=== PATIENT | female | born 1995 | race Caucasian/White ===

== ENCOUNTER 2020-02-08 08:44 | Outpatient (CLI) | payer OTHER ==
[2020-02-09 12:17] LABS: SARS-CoV-2 MS2 Positive; SARS-CoV-2 N Gene Negative; SARS-CoV-2 S Gene Negative; SARS-CoV-2 by NAA Not Detected (NotDetected); SARS-CoV-2 orf1ab Negative
== END 2020-02-08 08:45 | disposition home or self-care (01) ==
LOC: LABSCS 08:44
PROVIDERS: ATTEND Student in an Organized Health Care Education/Training Program
DX: Z20.828 Contact with and (suspected) exposure to other viral communicable diseases (principal)
CPT/HCPCS: 87635; U0003

== ENCOUNTER 2020-02-11 04:07 | Inpatient (IN) | payer OTHER ==
[2020-02-11] MEDS ORDERED: Carboprost 250 MCG/ML AMP IM PRN (04:21)
[2020-02-11] MEDS ORDERED: Misoprostol 200 MCG TAB PR PRN (04:21)
[2020-02-11] MEDS ORDERED: Ondansetron PF 4 MG/2 ML Vial IVP PRN ×2 (04:21→05:36)
[2020-02-11] MEDS ORDERED: HYDROcodone/Acetaminophen 5/325 mg Tablet PO PRN (04:21)
[2020-02-11] MEDS ORDERED: Ibuprofen 800 MG TAB PO PRN (04:21)
[2020-02-11] MEDS ORDERED: Methylergonovine 0.2 MG/ML VIAL IM PRN (04:21)
[2020-02-11] MEDS ORDERED: Butorphanol Tartrate 1 MG/ML VIAL SLOW IVP PRN (04:21)
[2020-02-11] MEDS ORDERED: Acetaminophen 500 MG TAB PO PRN (04:21)
[2020-02-11] MEDS ORDERED: Lidocaine 1% (PF) 30 ML VIAL SC PRN (04:21)
[2020-02-11] MEDS ORDERED: NS / Oxytocin 40 units/1000ml 1,000 ML IV PRN (04:21)
[2020-02-11] MEDS ORDERED: hydrALAZINE 20 MG/ML VIAL SLOW IVP PRN ×3 (04:21→10:05)
[2020-02-11] MEDS ORDERED: Diphenoxylate HCl/Atropine Tablet PO PRN (04:21)
[2020-02-11] MEDS ORDERED: Promethazine HCl 25 MG/ML VIAL IM PRN ×2 (04:21→05:36)
[2020-02-11] MEDS ORDERED: Lactated Ringer's 1,000 ML IV SCH (04:30)
[2020-02-11] MEDS ORDERED: NS w/ Oxytocin 10 units 500 ML IV SCH (04:30)
[2020-02-11 04:37] VITALS: BMI 29.2
[2020-02-11] MEDS ORDERED: Penicillin G Potassium 5 MILL.UNITS in Sodium Chloride 0.9% 100 ML IVPB SCH (04:45)
[2020-02-11] MEDS ORDERED: Fentanyl 4 mcg/Bup 0.1% Cadd 100 ML ONE (05:01)
[2020-02-11 05:10] LABS: Hemoglobin 12.6 g/dL (12.0-16.0); Mean Corpuscular Volume 87.9 fL (78.0-98.0); Mean Platelet Volume 10.5 fL (7.4-10.4); Platelet Count 207 thou/uL (130-400); RBC Distribution Width 11.5 % (11.5-14.5); Red Blood Cell (RBC) Count 4.36 mill/uL (4.20-5.40); White Blood Cell (WBC) Count 13.6 thou/uL (4.8-10.8)
[2020-02-11] MEDS ORDERED: EPHEDRINE 25 MG/5 ML SYRINGE SLOW IVP PRN (05:36)
[2020-02-11] MEDS ORDERED: diphenhydrAMINE 50 MG/ML VIAL IVP PRN (05:36)
[2020-02-11] MEDS ORDERED: Naloxone HCl 0.4 mg/ml Vial IVP PRN ×2 (05:36)
[2020-02-11] MEDS ORDERED: Lactated Ringer's 500 ML IV PRN (05:36)
[2020-02-11] MEDS ORDERED: Acetaminophen 325 MG TAB PO PRN (05:36)
[2020-02-11] MEDS ORDERED: Fentanyl 4 mcg/Bupivacaine 0.1% Cassette 100 ML EPIDURAL SCH (05:45)
[2020-02-11] MEDS ORDERED: Communication Order-Pharmacy FS SCH (05:45)
[2020-02-11 05:52] LABS: HBSAg Index 0.19 S/CO (0-0.99); Hep B Surf Ag Non-Reactive S/CO (NonReactive)
[2020-02-11 05:53] LABS: Syphilis Antibody Nonreactive (Nonreactive); Syphilis Antibody Index 0.03 S/CO (<1.00 Non-Reactive)
--- NOTE | 2020-02-11 07:00 | DN ---
DATE OF PROCEDURE: 02/11/2020 DATE OF DELIVERY: 02/11/2020 Patient is a 24-year-old G2, P1, with an intrauterine at 40 weeks and a day, presenting in active labor. She delivered a female at 0557 hours by uncomplicated term spontaneous vaginal delivery. Gestational age is 40 weeks. Apgars are eight and nine. weight unavailable at the time of dictation. Placenta delivered spontaneously followed by Pitocin infusion. There were no lacerations. Dr. Spence is the delivering physician. Estimated blood loss was about 200. Quantitative blood loss unavailable at the time of dictation. Counts Were correct. There were no lacerations. Mother and baby are stable in the room in the immediate . Job ID: [id number]
[2020-02-11] MEDS ORDERED: Milk Of Magnesia 30 ML UDCUP PO PRN ×2 (08:53→10:05)
[2020-02-11] MEDS ORDERED: Adacel (T-DAP) 0.5 ML SYRINGE IM ONE (08:53)
[2020-02-11] MEDS ORDERED: Bisacodyl 10 MG SUPP PR PRN ×2 (08:53→10:05)
[2020-02-11] MEDS ORDERED: Preparation H Ointment 28 GM TUBE PR PRN (08:53)
[2020-02-11] MEDS ORDERED: Acetaminophen/Codeine 30-300mg Tablet PO PRN ×2 (08:53)
[2020-02-11] MEDS ORDERED: Docusate Calcium (SURFAK) 240 MG CAP PO SCH (09:00)
[2020-02-11] MEDS ORDERED: Prenatal Vitamin 1 TAB PO SCH (09:00)
[2020-02-11] MEDS ORDERED: Penicillin G 2.5 MILL.units 2.5 MILL.UNITS in Premix Bag 1 BAG IVPB SCH (09:00)
[2020-02-11] MEDS ORDERED: NS / Oxytocin 40 units/1000ml 1,000 ML IV SCH ×2 (09:00→10:05)
[2020-02-11] MEDS ORDERED: diphenhydrAMINE 25 MG CAP PO PRN (10:05)
[2020-02-11] MEDS ORDERED: Lanolin Ointment 7 GM TUBE TOP PRN (10:05)
[2020-02-11] MEDS: Ibuprofen 800 MG TAB PO SCH ×2 (10:22→18:30)
[2020-02-11] MEDS ORDERED: Bupivacaine HCl 0.5%/Epinephrine 1:200,000/PF 30 ml Vial ONE (12:55)
[2020-02-11] MEDS: Ondansetron PF 4 MG/2 ML Vial IVP PRN ×2 (13:30→17:33)
[2020-02-11] MEDS ORDERED: Sodium Chloride 0.9% 10 ML ONE (13:32)
[2020-02-11] MEDS ORDERED: Ibuprofen 800 MG TAB PO SCH (14:00)
[2020-02-11] MEDS: Ferrous Sulfate 325 MG TAB PO SCH (16:27)
[2020-02-11] MEDS ORDERED: Ferrous Sulfate 325 MG TAB PO SCH (17:00)
[2020-02-12] MEDS: Docusate Calcium (SURFAK) 240 MG CAP PO SCH ×3 (01:33→20:45)
[2020-02-12] MEDS: Ibuprofen 800 MG TAB PO SCH ×3 (01:33→20:45)
[2020-02-12 05:57] LABS: #Basophils 0.1 thou/uL (0.0-0.2); #Eosinphils 0.1 thou/uL (0.0-0.7); #Lymphocytes 2.7 thou/uL (1.20-3.40); #Monocytes 0.8 thou/uL (0.11-0.59); #Neutrophils 8.9 thou/uL (1.40-6.50); %Basophils 0.5 % (0.0-1.0); %Eosinophils 1.1 % (0.0-10.0); %Lymphocytes 21.8 % (21.0-51.0); %Monocytes 6.2 % (0.0-10.0); %Neutrophils 70.5 % (42.0-75.0); Hemoglobin 10.9 g/dL (12.0-16.0); Mean Corpuscular Hemoglobin 28.7 pg (27.0-31.0); Mean Corpuscular Volume 89.6 fL (78.0-98.0); Mean Platelet Volume 10.7 fL (7.4-10.4); Platelet Count 151 thou/uL (130-400); RBC Distribution Width 11.5 % (11.5-14.5); Red Blood Cell (RBC) Count 3.81 mill/uL (4.20-5.40); White Blood Cell (WBC) Count 12.6 thou/uL (4.8-10.8)
--- NOTE | 2020-02-12 07:22 | PDOC.PP ---
Post Progress Note Post Day #: 1 PO intake tolerated: yes Flatus: yes Ambulation: yes Vital Signs (12 hours) Temp Pulse Resp BP 02/12/20 06:02 98.1 F 81 12 117/71 02/12/20 01:37 98.0 F 67 12 125/76 02/11/20 19:49 98.1 F 70 12 138/80 Weight Weight 170 lb - Physical Examination General: NAD Respiratory: non-labored breathing Abdominal: no distention, appropriately TTP Fundus firm & at: umb Neurological: no gross focal deficits Psychiatric: normal affect Result Diagrams: 02/12/20 05:10 Additional Labs: Post Labs Blood Type A POSITIVE 02/11/20 04:53 Hep Bs Antigen Non-Reactive S/CO (NonReactive) 02/11/20 04:53 - Assessment/Plan PPD1 s/p TSVD VSSAF Doing well, lochia < menses Rh pos RImm Cont PP care, home tomorrow
[2020-02-12] MEDS: Prenatal Vitamin 1 TAB PO SCH (08:22)
[2020-02-12] MEDS: Ferrous Sulfate 325 MG TAB PO SCH ×2 (08:22→17:45)
[2020-02-13] MEDS: Ibuprofen 800 MG TAB PO SCH (06:18)
[2020-02-13] MEDS: Ferrous Sulfate 325 MG TAB PO SCH (08:17)
[2020-02-13] MEDS: Prenatal Vitamin 1 TAB PO SCH (08:17)
[2020-02-13] MEDS: Docusate Calcium (SURFAK) 240 MG CAP PO SCH (08:18)
[2020-02-13 08:30] VITALS: BP 125/72; TEMP 97.9
--- NOTE | 2020-02-13 10:06 | PDOC.PP ---
Post Progress Note Post Day #: 2 PO intake tolerated: yes Flatus: yes Ambulation: yes Vital Signs (12 hours) Temp Pulse Resp BP Pulse Ox 02/13/20 08:30 97.9 F 92 20 125/72 98 Weight Weight 170 lb - Physical Examination General: NAD Respiratory: non-labored breathing Abdominal: no distention, appropriately TTP Fundus firm & at: umb-2 Skin: no rash Neurological: no gross focal deficits Psychiatric: normal affect Result Diagrams: 02/12/20 05:10 Additional Labs: Post Labs Blood Type A POSITIVE 02/11/20 04:53 Hep Bs Antigen Non-Reactive S/CO (NonReactive) 02/11/20 04:53 - Assessment/Plan PPD2 s/p TSVD VSSAF Doing well, pain controlled DC home FU 6w
== END 2020-02-13 10:45 | disposition home or self-care (01) | DRG 807 ==
LOC: L&D-LIB 04:07 → 3SW 10:03
PROVIDERS: ADMIT Student in an Organized Health Care Education/Training Program; ATTEND Student in an Organized Health Care Education/Training Program
PROC: 10E0XZZ Delivery of Products of Conception, External Approach (ICD-10-PCS; principal; 2020-02-11)
PROC: 3E033VJ Introduction of Other Hormone into Peripheral Vein, Percutaneous Approach (ICD-10-PCS; 2020-02-11)
DX: O80 Encounter for full-term uncomplicated delivery (principal); Z37.0 Single live birth; Z3A.40 40 weeks gestation of pregnancy
CPT/HCPCS: 36415; 85025; 85027; 86780; 86850; 86900; 86901; 87340; 87635; 99285; J0595; J0670; J2405; J2540; J3490; U0003

== ENCOUNTER 2022-02-18 07:30 | Outpatient (CLI) | payer OTHER | END 2022-02-18 07:31 | disposition home or self-care (01) | LOC: NM 07:30 | PROVIDERS: ATTEND Family Medicine | DX: R10.11 Right upper quadrant pain (principal) | CPT/HCPCS: 78227; A9537 ==